=== PATIENT | female | born 1995 | race Caucasian/White ===

== ENCOUNTER → 2021-11-20 13:59 | Outpatient (BNVA) | payer BC, SELFPAY | PROVIDERS: PCP Family Medicine; Visit Provider Family Medicine | DX: M62.838 Other muscle spasm (principal); Z68.1 Body mass index [BMI] 19.9 or less, adult | CPT/HCPCS: 80053; 84443; 85025 ==

== ENCOUNTER → 2023-01-01 09:38 | Outpatient (BNVA) | payer BC, SELFPAY | PROVIDERS: PCP Family Medicine; Visit Provider Nurse Practitioner Family | DX: R39.9 Unspecified symptoms and signs involving the genitourinary system (principal); N30.01 Acute cystitis with hematuria | CPT/HCPCS: 81000; 87077; 87086; 87184 ==